=== PATIENT | male | born 1975 | race Caucasian/White ===

== ENCOUNTER → 2019-10-05 09:36 | Outpatient (CLI) | payer OTHER, SELFPAY ==
[2019-10-06 13:09] LABS: COVID19 Sendout NOT DETECTED (Not Detect)
== END ==
PROVIDERS: Visit Provider Registered Nurse
DX: Z01.812 Encounter for preprocedural laboratory examination (principal)
CPT/HCPCS: 87635

== ENCOUNTER 2019-10-07 10:28 | Day surgery (SDC) | payer OTHER, SELFPAY ==
[2019-10-04 08:36] VITALS: BMI 45.4
[2019-10-07] VITALS (11 sets, daily range): BP systolic 109–135; BP diastolic 57–81; PULSE 78–98; RESP 10–18; TEMP 36.2–37; O2SAT 92–96; BMI 45.3
[2019-10-07] MEDS: CEFAZOLIN 2 GM/100 ML FROZ.PIGGY IV (13:10)
--- NOTE | 2019-10-07 13:38 | SUR.PREOP ---
Block start time [1310] . Monitoring initiated and maintained throughout procedure. Oxygen and medications given per anesthesiologist instructions. Patient remained stable throughout procedure, no adverse reactions noted. Block end time [1324].
[2019-10-07] MEDS: SODIUM CHLORIDE IRRIG SOLUTION 3,000 ML, EPINEPHrine 1 MG IRR ×2 (13:45→14:16)
--- NOTE | 2019-10-07 14:05 | SUR.OPER ---
Lateral on padded OR bed with rivero bag positioner, head on pillow, gel axillary roll in place, bottom leg bent with gel pad under knee to foot, upper leg straight and supported with pillows. Operative arm secured in shoulder positioning suspension device. non-operative arm secured on padded arm board. Safety belt at hip, tape over blanket securing lower legs.
[2019-10-07] MEDS: BUPIVACAINE 0.5% W/ EPI (PF) 10 ML VIAL INJ (14:12)
--- NOTE | 2019-10-07 14:51 | PM.OP.1 ---
Operative Date/Time/Diagnoses Date of procedure: 10/07/19 Time of procedure: 14:40 Pre-op diagnosis: Right shoulder acromioclavicular osteoarthritis Post-op diagnosis: same Procedure & Clinicians Procedure: 1. Right shoulder arthroscopic distal clavicle excision 2. Right shoulder arthroscopic subacromial decompression Same procedure as scheduled: Yes Indications: The patient is a 44-year-old man who suffered a work related injury to his right shoulder. He has had extensive attempts at non operative management including acromioclavicular injection without long-term relief. After discussion the risks benefits and alternatives, he has agreed to proceed with surgery. Risks discussed included but were not limited to: Failure to improve, stiffness, infection, nerve damage, deep venous thrombosis, pulmonary embolism, stroke, myocardial infarction, permanent paralysis and . Surgeon: Ethan Rivera Click Yes if Unassisted: Yes Anesthesia Type: General, Peripheral nerve block and Local Operative Notes Findings: 1. Normal glenohumeral cartilage 2. Normal glenohumeral labrum with superior meniscoid labrum morphology 3. Normal glenohumeral ligaments 4. Normal subscapularis 5. Minimal fraying of the biceps tendon with intact biceps insertion. 6. Intact supraspinatus 7. Intact infraspinatus 8. Normal axillary pouch 9. Normal rotator cuff from the superior surface 10. Type 2 acromion with no impingement lesion. A subacromial decompression was performed to better allow access to the acromioclavicular joint. 11. Extensive arthritic change in the acromioclavicular joint 12. Exam under is anesthesia notable for no restriction in range of motion and no evidence for pathologic laxity. Closure Type: primary Specimen(s): none sent Prosthetic devices, grafts, tissues, transplants, or devices: None Estimated Blood Loss (mL): 10 Blood products transfused: none Procedure in detail: The patient was seen in the preoperative area where he identified his right shoulder as the operative site and this was marked with my initials. He received preoperative antibiotics and underwent the induction of an interscalene block. He was then taken to the operating room placed on the operating room table in a supine position where he underwent induction of general anesthetic. Following the onset of satisfactory general anesthesia his right shoulder was examined under anesthesia with result given above. The patient was then positioned in the left lateral decubitus position with an axillary roll and padding for all pressure points. He was stabilized in this position with the rivero bag. The right arm was prepared from the fingertips to the base the neck with ChloraPrep in the usual fashion and draped through sterile drapes. The right arm was placed in 10 lb of balanced skin suspension. The subcutaneous landmarks were outlined on the skin with marking pen. Portal sites were selected. The posterior portal was created and the arthroscope inserted into the glenohumeral joint and diagnostic arthroscopy performed in the usual order with result given above. During diagnostic arthroscopy an anterior portal was created and the outflow cannula inserted and used to manipulate the superior labrum to ensure that this was not a pathologic finding. The arthroscope was then removed and placed in the subacromial space through the posterior portal. A lateral portal was created for instrumentation. Bursectomy was performed. Soft tissue was removed from the undersurface of the acromion and the distal clavicle to allow visualization. The type 2 acromion was converted to a type 1 acromion to allow better access to the AC joint for AC joint excision. The distal 8-10 mm of clavicle was excised due to the pain and MRI findings preoperatively. At the completion of this all arthroscopic equipment was removed, the wounds were closed with 4 0 Monocryl and Steri-Strips. A total of 20 mL of 0.5% Marcaine was injected in the subacromial space and the subcutaneous tissues. The wounds were dressed with sterile 4x4s, an ABD and Tegaderm. The patient's arm was placed in a sling and he was transported to the recovery room in good condition having tolerated the procedure well. Complications: none Post-operative Condition: stable Disposition: PACU Plan for aftercare: The patient will be discharged today. He will be maintained on a standard arthroscopic subacromial decompression protocol with physical therapy. A work light duty form was filled out for him for his workman's compensation insurance. We will keep him off work for 2 weeks and then consider return to light duty.
--- NOTE | 2019-10-07 14:52 | PM.PROC.1 ---
Procedures Date/Time Date of procedure: 10/07/19 Time of procedure: 13:10 General Procedure description: Ultrasound guided interscalene brachial plexus nerve block for post op pain control after right shoulder arthroscopy by Dr. Rivera. Risk and benefits of procedure discussed with patient. ASA monitoring applied to patient. O2 given via nasal cannula. 2 mg Versed and 50 mcg fentanyl given for procedural sedation. Skin site was prepped with chlorhexidine and allowed to fully dry. Sterile gloves, mask, hat and probe cover were used to maintain sterility. 2% lidocaine and 30ga needle was used to make a small skin wheal at needle insertion site. Under ultrasound guidance, a 21ga 50mm Pajunk needle was directed into the interscalene groove (middle/anterior scalenes) near the brachial plexus. Patient reported no parasthesias. After negative aspiration, 10 mL 0.5% ropivicaine and 10mg dexamethasone were injected around brachial plexus. Patient tolerated procedure well.
[2019-10-07] MEDS: hydrOXYzine pamoate 25 MG CAPSULE PO (14:56)
[2019-10-07] MEDS: OXYCODONE IR 5 MG TABLET PO (14:56)
[2019-10-07] MEDS: fentaNYL 100 MCG/2 ML INJ IV ×3 (15:10→15:24)
[2019-10-07] MEDS: OXYCODONE/ACETAMINOPHEN 5/325 TABLET 1 TAB PO (15:23)
--- NOTE | 2019-10-07 15:33 | SUR.PHASEI ---
Patient A/O x 4. JONES's x 4. Gave IV and po pain medication for c/o pain. Patient states pain has subsided. Able to move fingers. Good radial pulse. Drsg wet with pink drainage. Dr aware, states it looks good.
--- NOTE | 2019-10-07 15:44 | SUR.PHASEII ---
Patient states pain is tolerable. Krista has small amount of pink drainage. Dr dong.
== END 2019-10-07 16:01 | disposition home or self-care (01) ==
PROVIDERS: Referring Provider Orthopaedic Surgery; Visit Provider Orthopaedic Surgery
PROC: (CPT 29805; principal; 2019-10-07 12:15)
DX: M19.111 Post-traumatic osteoarthritis, right shoulder (principal); S46.911A Strain of unspecified muscle, fascia and tendon at shoulder and upper arm level, right arm, initial encounter; S46.011A Strain of muscle(s) and tendon(s) of the rotator cuff of right shoulder, initial encounter
CPT/HCPCS: 29824; J0171; J0330; J0690; J1100; J1885; J2250; J2405; J2704; J3010